=== PATIENT | male | born 1960 | race Caucasian/White ===

== ENCOUNTER 2017-07-20 18:49 | Emergency (ER) | payer SELFPAY ==
[~2017-07-20] VITALS: Ht 167.6 cm; Wt 69.0 kg
[2017-07-20] MEDS ORDERED: IPRATROPIUM BROMIDE (0.02%) 0.5MG/2.5ML NEB HHN STA (19:01)
[2017-07-20] MEDS ORDERED: ALBUTEROL (0.083%) 2.5MG/3ML NEB HHN STA (19:01)
[2017-07-20 20:03] LABS: BASOPHILS % 2.8 % (0.0-2.0); EOSINOPHILS % 1.7 % (0.0-5.0); HEMATOCRIT. 46.5 % (42.0-52.0); LYMPHOCYTES % 35.1 % (20.0-50.0); MEAN CORPUSCULAR HEMOGLOBIN 30.5 pg (28.0-32.0); MEAN CORPUSCULAR VOLUME 88.8 fL (80.0-94.0); MEAN PLATELET VOLUME 10.1 fl (7.4-10.4); NEUTROPHILS % 51.4 % (40.0-76.0); PLATELET 151 x1000/uL (130-400); RED BLOOD CELL COUNT 5.23 mill/uL (4.7-6.1)
[2017-07-20 20:05] LABS: CHLORIDE 112 mEq/L (98-107)
[2017-07-20 20:07] LABS: INR 1.2; PARTIAL THROMBOPLASTIN TIME 27.8 sec (23.4-31.0); PROTHROMBIN TIME 12.9 sec (9.4-11.6)
[2017-07-20] MEDS ORDERED: SODIUM CHLORIDE 0.9% 1,000 ML IV ONE (23:04)
[2017-07-20 23:28] LABS: BG BASE EXCESS -4.2 mmol/L (-2.0-2.0); BG CARBOXYHEMOGLOBIN 1.3 % (0.5-1.5); BG DEOXYHEMOGLOBIN 2.8 % (0.0-5.0); BG FRACTION INSPIRED OXYGEN 21; BG METHEMOGLOBIN 0.1 % (0.0-1.5); BG OXYHEMOGLOBIN 95.8 % (94.0-97.0); BG PCO2 26.3 mmHg (35.0-45.0); BG PH 7.452 (7.350-7.450); BG PO2 90.9 mmHg (75.0-100.0); BG SAMPLE SITE RIGHT BRACHIAL; BG TOTAL HEMOGLOBIN 15.3 g/dL (12.0-18.0); BG VENT MODE ROOM AIR
[2017-07-21] MEDS ORDERED: HYDROCODONE/ACETAMINOPHEN 5/325MG TABLET PO PRN (05:15)
[2017-07-21] MEDS ORDERED: DOCUSATE SODIUM 100MG CAPSULE PO PRN (05:15)
[2017-07-21] MEDS ORDERED: GUAIFENESIN 200MG/10ML SUGAR FREE UDC PO PRN (05:15)
[2017-07-21] MEDS ORDERED: HYDROMORPHONE HCL/PF 2MG/ML CPJ IV PRN (05:15)
[2017-07-21] MEDS ORDERED: CLONIDINE 0.1MG TABLET PO PRN (05:15)
[2017-07-21] MEDS ORDERED: ACETAMINOPHEN 325MG TABLET PO PRN (05:15)
[2017-07-21] MEDS ORDERED: ONDANSETRON HCL 4MG/2ML VIAL IV PRN (05:15)
[2017-07-21] MEDS ORDERED: NA PHOS,M-B/NA PHOS,DI-BA ENEMA 118ML PR PRN (05:15)
[2017-07-21] MEDS ORDERED: MAGNESIUM/ALUMINUM HYDROXIDE/SIMETHICONE 30ML UDC PO PRN (05:15)
[2017-07-21] MEDS ORDERED: DIPHENHYDRAMINE 50MG/ML VIAL IV PRN (05:15)
[2017-07-21] MEDS ORDERED: LORAZEPAM 2MG/ML CPJ IV PRN (05:15)
[2017-07-21] MEDS ORDERED: IPRATROPIUM/ALBUTEROL 0.5-3(2.5)MG/3ML NEB INH PRN (05:15)
[2017-07-21 06:37] LABS: CHLORIDE 115 mEq/L (98-107)
[2017-07-21] MEDS ORDERED: LEVOFLOXACIN 500MG PREMIX 100 ML IV SCH (08:00)
[2017-07-21] MEDS ORDERED: METHYLPREDNISOLONE SOD SUCC 125 MG/2 ML VIAL IV SCH (08:00)
[2017-07-21] MEDS ORDERED: ENOXAPARIN 40MG/0.4ML SYR SUBCUT SCH (09:00)
[2017-07-21] MEDS ORDERED: ASPIRIN 81MG EC TABLET PO SCH (09:00)
[2017-07-21 09:16] LABS: *AMPHETAMINES SCREEN URINE PRESUMTIVE POSITIVE (NEGATIVE); *BARBITURATES SCREEN URINE NEGATIVE (NEGATIVE)
[2017-07-21 09:17] LABS: *BENZODIAZEPINES SCREEN URINE NEGATIVE (NEGATIVE); *COCAINE SCREEN URINE NEGATIVE (NEGATIVE); CANNABINOID URINE SCREEN NEGATIVE (NEGATIVE); METHADONE URINE SCREEN NEGATIVE (NEGATIVE); OPIATES URINE SCREEN NEGATIVE (NEGATIVE); PHENCYCLIDINE URINE SCREEN NEGATIVE (NEGATIVE)
[2017-07-21 11:32] VITALS: BP 121/85
== END 2017-07-21 12:35 | disposition left against medical advice (07) ==
LOC: ER 20:34 → ENRESERV 07-21 14:46 → CANRESERV 07-21 14:46 → CANBEDREQ 07-21 16:26
DX: J18.9 Pneumonia, unspecified organism (principal); J98.01 Acute bronchospasm; F15.10 Other stimulant abuse, uncomplicated; F17.210 Nicotine dependence, cigarettes, uncomplicated; R94.31 Abnormal electrocardiogram [ECG] [EKG]
CPT/HCPCS: 36415; 36600; 71045; 80048; 80053; 80305; 82375; 82805; 83690; 83880; 84443; 84484; 85025; 85610; 85730; 93005; 94640; 96365; 96366; 99285; J1956; J7030; J7611

== ENCOUNTER 2017-07-29 15:19 | Inpatient (IN) | payer SELFPAY ==
[~2017-07-29] VITALS: Ht 167.6 cm; Wt 71.7 kg
[2017-07-29] MEDS ORDERED: METHYLPREDNISOLONE SOD SUCC 125 MG/2 ML VIAL IV STA (15:44)
[2017-07-29] MEDS ORDERED: IPRATROPIUM BROMIDE (0.02%) 0.5MG/2.5ML NEB HHN STA (15:44)
[2017-07-29] MEDS ORDERED: ALBUTEROL (0.083%) 2.5MG/3ML NEB HHN STA (15:44)
[2017-07-29 16:25] LABS: BASOPHILS % 0.8 % (0.0-2.0); EOSINOPHILS % 1.2 % (0.0-5.0); HEMATOCRIT. 44.8 % (42.0-52.0); HEMOGLOBIN. 14.9 g/dL (14.0-18.0); MEAN CORPUSCULAR HEMOGLOBIN 29.8 pg (28.0-32.0); MEAN CORPUSCULAR VOLUME 89.8 fL (80.0-94.0); MEAN PLATELET VOLUME 10.6 fl (7.4-10.4); MONOCYTES % 5.9 % (2.0-8.0); NEUTROPHILS % 77.1 % (40.0-76.0); PLATELET 117 x1000/uL (130-400); RED BLOOD CELL COUNT 4.98 mill/uL (4.7-6.1); RED CELL DISTRIBUTION WIDTH 16.4 % (11.6-14.6)
[2017-07-29 16:28] LABS: CHLORIDE 112 mEq/L (98-107)
[2017-07-29 17:46] LABS: INR 1.3; PROTHROMBIN TIME 13.8 sec (9.4-11.6)
[2017-07-29 18:09] LABS: COLOR URINE DARK YELLOW (YELLOW); KETONES URINE NEGATIVE (NEGATIVE); LEUKOCYTE ESTERASE URINE NEGATIVE (NEGATIVE); NITRITE URINE NEGATIVE (NEGATIVE); OCCULT BLOOD URINE NEGATIVE (NEGATIVE); PROTEIN URINE 2+ (NEGATIVE); SPECIFIC GRAVITY URINE 1.026 (1.005-1.030)
[2017-07-29] MEDS ORDERED: ENALAPRIL 2.5MG/2ML VIAL 2ML IV ONE (18:15)
[2017-07-29] MEDS ORDERED: FUROSEMIDE 40MG/4ML VIAL IVP ONE (18:15)
[2017-07-29 18:17] LABS: CLARITY URINE CLEAR (CLEAR)
[2017-07-29] MEDS ORDERED: MAGNESIUM/ALUMINUM HYDROXIDE/SIMETHICONE 30ML UDC PO PRN (18:45)
[2017-07-29] MEDS ORDERED: HYDROCODONE/ACETAMINOPHEN 5/325MG TABLET PO PRN (18:45)
[2017-07-29] MEDS ORDERED: CLONIDINE 0.1MG TABLET PO PRN (18:45)
[2017-07-29] MEDS ORDERED: DOCUSATE SODIUM 100MG CAPSULE PO PRN (18:45)
[2017-07-29 19:26] LABS: HEPATITIS B SURFACE ANTIGEN NEGATIVE
[2017-07-29 19:54] LABS: HEPATITIS B CORE AB IGM NEGATIVE
[2017-07-29 19:56] LABS: HEPATITIS A AB IGM NEGATIVE (NEGATIVE)
[2017-07-29] MEDS ORDERED: ONDANSETRON HCL 4MG/2ML VIAL IV PRN (20:00)
[2017-07-30] VITALS (9 sets, daily range): BP systolic 97–129; BP diastolic 63–100
[2017-07-30 00:55] LABS: CHLORIDE 109 mEq/L (98-107)
[2017-07-30 01:04] LABS: CREATINE KINASE 251 IU/L (39-308)
[2017-07-30 01:06] LABS: CREATINE KINASE MB FRACTION 10.2 ng/mL (0.5-3.6)
[2017-07-30 07:16] LABS: BASOPHILS % 0.1 % (0.0-2.0); HEMATOCRIT. 41.9 % (42.0-52.0); MEAN CORPUSCULAR HEMOGLOBIN 29.8 pg (28.0-32.0); MEAN CORPUSCULAR VOLUME 89.2 fL (80.0-94.0); MEAN PLATELET VOLUME 10.7 fl (7.4-10.4); NEUTROPHILS % 87.9 % (40.0-76.0); PLATELET 102 x1000/uL (130-400)
[2017-07-30] MEDS ORDERED: DEXTROSE 50% WATER 50ML SYRINGE IV PRN (07:30)
[2017-07-30 07:51] LABS: CREATINE KINASE MB FRACTION 10.5 ng/mL (0.5-3.6)
[2017-07-30] MEDS: INSULIN LISPRO 100 UNITS/ML SUBCUT SCH ×4 (08:00→20:28)
[2017-07-30] MEDS: FUROSEMIDE 40MG/4ML VIAL IV SCH ×2 (08:15→17:10)
[2017-07-30] MEDS: LISINOPRIL 5MG TABLET PO SCH (08:17)
[2017-07-30] MEDS: BLOOD SUGAR DIAGNOSTIC STRIP TEST SCH ×4 (08:18→20:28)
[2017-07-30] MEDS ORDERED: ASPIRIN 325MG EC TABLET PO SCH (10:30)
[2017-07-30] MEDS: AMLODIPINE 5MG TABLET PO SCH (11:54)
[2017-07-30] MEDS: BUDESONIDE 0.5MG/2ML NEB HHN SCH ×2 (13:19→20:16)
[2017-07-30] MEDS: IPRATROPIUM/ALBUTEROL 0.5-3(2.5)MG/3ML NEB INH PRN ×2 (13:20→20:16)
[2017-07-30 17:51] LABS: CLARITY URINE CLEAR (CLEAR); COLOR URINE YELLOW (YELLOW); KETONES URINE NEGATIVE (NEGATIVE); LEUKOCYTE ESTERASE URINE NEGATIVE (NEGATIVE); NITRITE URINE NEGATIVE (NEGATIVE); OCCULT BLOOD URINE NEGATIVE (NEGATIVE); PROTEIN URINE NEGATIVE (NEGATIVE); SPECIFIC GRAVITY URINE 1.012 (1.005-1.030)
[2017-07-30 18:21] LABS: *AMPHETAMINES SCREEN URINE PRESUMTIVE POSITIVE (NEGATIVE)
[2017-07-30 18:22] LABS: *BARBITURATES SCREEN URINE NEGATIVE (NEGATIVE); *BENZODIAZEPINES SCREEN URINE NEGATIVE (NEGATIVE); *COCAINE SCREEN URINE NEGATIVE (NEGATIVE); METHADONE URINE SCREEN NEGATIVE (NEGATIVE); OPIATES URINE SCREEN NEGATIVE (NEGATIVE); PHENCYCLIDINE URINE SCREEN NEGATIVE (NEGATIVE)
[2017-07-30 18:23] LABS: CANNABINOID URINE SCREEN NEGATIVE (NEGATIVE)
[2017-07-30] MEDS: ACETAMINOPHEN 325MG TABLET PO PRN (21:34)
[2017-07-31] VITALS (8 sets, daily range): BP systolic 86–122; BP diastolic 50–81
[2017-07-31 07:00] LABS: BASOPHILS % 0.7 % (0.0-2.0); EOSINOPHILS % 0.5 % (0.0-5.0); HEMATOCRIT. 45.2 % (42.0-52.0); HEMOGLOBIN. 15.1 g/dL (14.0-18.0); LYMPHOCYTES % 21.1 % (20.0-50.0); MEAN CORPUSCULAR HEMOGLOBIN 29.8 pg (28.0-32.0); MEAN CORPUSCULAR VOLUME 89.2 fL (80.0-94.0); MEAN PLATELET VOLUME 10.9 fl (7.4-10.4); MONOCYTES % 7.9 % (2.0-8.0); NEUTROPHILS % 69.8 % (40.0-76.0); PLATELET 120 x1000/uL (130-400); RED BLOOD CELL COUNT 5.07 mill/uL (4.7-6.1); RED CELL DISTRIBUTION WIDTH 15.9 % (11.6-14.6)
[2017-07-31 07:29] LABS: CHLORIDE 104 mEq/L (98-107)
[2017-07-31] MEDS: BLOOD SUGAR DIAGNOSTIC STRIP TEST SCH ×4 (07:30→21:35)
[2017-07-31] MEDS: INSULIN LISPRO 100 UNITS/ML SUBCUT SCH ×4 (08:00→21:45)
[2017-07-31] MEDS: ASPIRIN 81MG EC TABLET PO SCH (08:45)
[2017-07-31] MEDS: FUROSEMIDE 40MG/4ML VIAL IV SCH ×2 (08:45→17:42)
[2017-07-31] MEDS: BUDESONIDE 0.5MG/2ML NEB HHN SCH ×2 (09:00→21:42)
[2017-07-31] MEDS: AMLODIPINE 5MG TABLET PO SCH (09:56)
[2017-07-31] MEDS: LISINOPRIL 5MG TABLET PO SCH (09:57)
[2017-07-31] MEDS ORDERED: CARVEDILOL 3.125 MG TABLET PO NR (12:45)
[2017-07-31] MEDS: CARVEDILOL 3.125 MG TABLET PO SCH (21:00)
[2017-08-01] VITALS (12 sets, daily range): BP systolic 83–150; BP diastolic 50–80
[2017-08-01 06:55] LABS: BASOPHILS % 1.2 % (0.0-2.0); EOSINOPHILS % 2.6 % (0.0-5.0); HEMATOCRIT. 46.7 % (42.0-52.0); HEMOGLOBIN. 15.7 g/dL (14.0-18.0); LYMPHOCYTES % 28.2 % (20.0-50.0); MEAN CORPUSCULAR VOLUME 89.6 fL (80.0-94.0); MEAN PLATELET VOLUME 10.4 fl (7.4-10.4); MONOCYTES % 8.8 % (2.0-8.0); NEUTROPHILS % 59.2 % (40.0-76.0); PLATELET 128 x1000/uL (130-400); RED BLOOD CELL COUNT 5.21 mill/uL (4.7-6.1); RED CELL DISTRIBUTION WIDTH 15.7 % (11.6-14.6)
[2017-08-01 07:25] LABS: CHLORIDE 102 mEq/L (98-107)
[2017-08-01] MEDS: BLOOD SUGAR DIAGNOSTIC STRIP TEST SCH ×4 (07:30→21:00)
[2017-08-01] MEDS: IPRATROPIUM/ALBUTEROL 0.5-3(2.5)MG/3ML NEB INH PRN (07:59)
[2017-08-01] MEDS: INSULIN LISPRO 100 UNITS/ML SUBCUT SCH ×4 (08:00→22:24)
[2017-08-01] MEDS: BUDESONIDE 0.5MG/2ML NEB HHN SCH ×2 (08:00→21:25)
[2017-08-01] MEDS: AMLODIPINE 5MG TABLET PO SCH (09:00)
[2017-08-01] MEDS: CARVEDILOL 3.125 MG TABLET PO SCH ×2 (09:00→20:43)
[2017-08-01] MEDS: LISINOPRIL 5MG TABLET PO SCH (09:00)
[2017-08-01] MEDS: ASPIRIN 81MG EC TABLET PO SCH (09:11)
[2017-08-01] MEDS: FUROSEMIDE 40MG/4ML VIAL IV SCH ×2 (09:11→18:43)
[2017-08-02] VITALS (7 sets, daily range): BP systolic 93–111; BP diastolic 50–77
[2017-08-02] MEDS: IPRATROPIUM/ALBUTEROL 0.5-3(2.5)MG/3ML NEB INH PRN ×2 (00:44→09:20)
[2017-08-02 06:55] LABS: BASOPHILS % 1.1 % (0.0-2.0); EOSINOPHILS % 2.3 % (0.0-5.0); HEMATOCRIT. 50.9 % (42.0-52.0); HEMOGLOBIN. 17.1 g/dL (14.0-18.0); LYMPHOCYTES % 26.9 % (20.0-50.0); MEAN CORPUSCULAR HEMOGLOBIN 29.8 pg (28.0-32.0); MEAN PLATELET VOLUME 10.2 fl (7.4-10.4); MONOCYTES % 8.7 % (2.0-8.0); PLATELET 135 x1000/uL (130-400); RED BLOOD CELL COUNT 5.72 mill/uL (4.7-6.1); RED CELL DISTRIBUTION WIDTH 15.9 % (11.6-14.6)
[2017-08-02 07:30] LABS: CHLORIDE 102 mEq/L (98-107)
[2017-08-02] MEDS: INSULIN LISPRO 100 UNITS/ML SUBCUT SCH (08:00)
[2017-08-02] MEDS: BLOOD SUGAR DIAGNOSTIC STRIP TEST SCH (08:24)
[2017-08-02] MEDS: ACETAMINOPHEN 325MG TABLET PO PRN (08:26)
[2017-08-02] MEDS: FUROSEMIDE 40MG/4ML VIAL IV SCH (08:31)
[2017-08-02] MEDS: ASPIRIN 81MG EC TABLET PO SCH (08:31)
[2017-08-02] MEDS: CARVEDILOL 3.125 MG TABLET PO SCH (08:32)
[2017-08-02] MEDS ORDERED: LISINOPRIL 2.5MG TABLET PO SCH (09:00)
[2017-08-02] MEDS: BUDESONIDE 0.5MG/2ML NEB HHN SCH (09:20)
[2017-08-02] MEDS ORDERED: COR3 PO (09:41)
[2017-08-02] MEDS ORDERED: METF500T4 MT (09:41)
[2017-08-02] MEDS ORDERED: LISI2.5T47 PO (09:41)
[2017-08-02] MEDS ORDERED: FURO-151 MT (09:41)
[2017-08-02] MEDS ORDERED: ASPI-1158 PO (09:41)
== END 2017-08-02 11:55 | disposition home or self-care (01) | DRG 144 ==
LOC: ER 15:19 → 5EST 18:28 → EDBEDREQSVC 18:47 → ENRESERV 22:01
PROVIDERS: ADMIT Internal Medicine; ATTEND Internal Medicine
DX: J68.0 Bronchitis and pneumonitis due to chemicals, gases, fumes and vapors (principal); J96.00 Acute respiratory failure, unspecified whether with hypoxia or hypercapnia; I50.23 Acute on chronic systolic (congestive) heart failure; E44.0 Moderate protein-calorie malnutrition; E87.8 Other disorders of electrolyte and fluid balance, not elsewhere classified; D69.6 Thrombocytopenia, unspecified; I42.9 Cardiomyopathy, unspecified; I11.0 Hypertensive heart disease with heart failure; B19.20 Unspecified viral hepatitis C without hepatic coma; E11.9 Type 2 diabetes mellitus without complications; E87.6 Hypokalemia; F17.210 Nicotine dependence, cigarettes, uncomplicated; Z96.659 Presence of unspecified artificial knee joint; Z60.2 Problems related to living alone; T43.625A Adverse effect of amphetamines, initial encounter; I25.2 Old myocardial infarction; Z79.899 Other long term (current) drug therapy; Z71.6 Tobacco abuse counseling; Y92.89 Other specified places as the place of occurrence of the external cause; Z68.25 Body mass index [BMI] 25.0-25.9, adult
CPT/HCPCS: 36415; 71045; 80048; 80053; 80061; 80305; 81003; 82550; 82553; 82962; 83036; 83735; 83880; 84443; 84484; 85025; 85610; 86705; 86709; 86803; 87340; 93005; 93306; 94640; 96374; 96375; 99285; J1815; J1940; J2930; J3490; J7611; J7620; J7626

== ENCOUNTER 2018-11-17 12:02 | Inpatient (IN) | payer MEDICAID ==
[~2018-11-17] VITALS: Ht 170.2 cm; Wt 72.6 kg
[~2018-11-17 12:02] MED LIST: ASPI-1158 PO; COR3 PO; FURO-151 MT; LISI2.5T47 PO; METF-414 MT
[2018-11-17] MEDS ORDERED: FUROSEMIDE 40MG/4ML VIAL IV ONE (13:30)
[2018-11-17 13:43] LABS: EOSINOPHILS % 2.1 % (0.0-5.0); HEMATOCRIT. 42.5 % (42.0-52.0); HEMOGLOBIN. 14.4 g/dL (14.0-18.0); LYMPHOCYTES % 25.1 % (20.0-50.0); MEAN CORPUSCULAR HEMOGLOBIN 30.1 pg (28.0-32.0); MEAN CORPUSCULAR VOLUME 88.6 fL (80.0-94.0); MEAN PLATELET VOLUME 9.6 fl (7.4-10.4); MONOCYTES % 9.2 % (2.0-8.0); NEUTROPHILS % 62.6 % (40.0-76.0); PLATELET 93 x1000/uL (130-400); RED CELL DISTRIBUTION WIDTH 15.2 % (11.6-14.6)
[2018-11-17 13:55] LABS: CHLORIDE 114 mEq/L (98-107)
[2018-11-17] MEDS ORDERED: LORAZEPAM 2MG/ML CPJ IV PRN (17:15)
[2018-11-17] MEDS ORDERED: ONDANSETRON HCL 4MG/2ML INJ IV PRN (17:15)
[2018-11-17] MEDS ORDERED: HYDROCODONE/ACETAMINOPHEN 5/325MG TABLET PO PRN (17:15)
[2018-11-17] MEDS ORDERED: THIAMINE HCL 100MG TABLET PO SCH (17:15)
[2018-11-17] MEDS ORDERED: ENOXAPARIN 40MG/0.4ML SYR SUBCUT SCH (17:15)
[2018-11-17] MEDS ORDERED: MORPHINE SULFATE 2 MG/ML CPJ (NOT FOR IM USE) IV PRN (17:38)
[2018-11-17 21:16] VITALS: BP 105/80
[2018-11-17 21:44] VITALS: BP 105/80
[2018-11-17 22:19] LABS: CREATINE KINASE MB FRACTION 3.9 ng/mL (0.5-3.6)
[2018-11-18] VITALS: BP 130/83
[2018-11-18 04:00] VITALS: BP 113/87
[2018-11-18] MEDS ORDERED: ASPIRIN 81MG EC TABLET PO ONE (06:28)
[2018-11-18] MEDS ORDERED: ASPIRIN 81MG EC TABLET PO SCH (06:30)
[2018-11-18 07:35] LABS: CREATINE KINASE MB FRACTION 3.7 ng/mL (0.5-3.6)
[2018-11-18 08:00] VITALS: BP_SYST 113; BP_DIAS 76; BP_DIAS 86
[2018-11-18] MEDS: CARVEDILOL 3.125 MG TABLET PO SCH ×2 (08:42→08:52)
[2018-11-18] MEDS ORDERED: FUROSEMIDE 40MG/4ML VIAL IV SCH ×2 (09:00)
[2018-11-18] MEDS ORDERED: LOSARTAN POTASSIUM 25 MG TABLET PO SCH (09:00)
== END 2018-11-18 11:00 | disposition left against medical advice (07) | DRG 194 ==
LOC: EDBEDREQ 13:42 → ER 14:12 → 7WST 17:00 → EDBEDREQTM 17:04 → EDBEDREQ 17:04 → ENRESERV 19:35 → 7WST 11-18 00:05
PROVIDERS: ADMIT Internal Medicine Nephrology; ATTEND Internal Medicine Nephrology
DX: I50.21 Acute systolic (congestive) heart failure (principal); I42.9 Cardiomyopathy, unspecified; E44.1 Mild protein-calorie malnutrition; F17.200 Nicotine dependence, unspecified, uncomplicated; J44.9 Chronic obstructive pulmonary disease, unspecified; Z53.21 Procedure and treatment not carried out due to patient leaving prior to being seen by health care provider; Z96.659 Presence of unspecified artificial knee joint; Z79.899 Other long term (current) drug therapy; Z91.14 Patient's other noncompliance with medication regimen; Z79.82 Long term (current) use of aspirin; Z79.84 Long term (current) use of oral hypoglycemic drugs; B19.20 Unspecified viral hepatitis C without hepatic coma
CPT/HCPCS: 36415; 71045; 80061; 82550; 82553; 83880; 84443; 84484; 93005; 99285; J1940

== ENCOUNTER 2019-04-09 07:28 | Inpatient (IN) | payer MEDICAID ==
[~2019-04-09] VITALS: Ht 170.2 cm; Wt 83.0 kg
[2019-04-09] MEDS ORDERED: ALBUTEROL (0.083%) 2.5MG/3ML NEB HHN STA ×2 (08:06→13:22)
[2019-04-09] MEDS ORDERED: IPRATROPIUM BROMIDE (0.02%) 0.5MG/2.5ML NEB HHN STA (08:06)
[2019-04-09] MEDS ORDERED: METHYLPREDNISOLONE SOD SUCC 125 MG/2 ML VIAL IV STA (08:06)
[2019-04-09] MEDS ORDERED: ALBUTEROL (0.083%) 2.5MG/3ML NEB ONE ×2 (08:14→13:42)
[2019-04-09] MEDS ORDERED: ALBUTEROL (0.5%) 2.5MG/0.5ML NEB HHN ONE (08:14)
[2019-04-09] MEDS ORDERED: IPRATROPIUM BROMIDE (0.02%) 0.5MG/2.5ML NEB ONE (08:15)
[2019-04-09 08:29] LABS: EOSINOPHILS % 0.4 % (0.0-5.0); HEMATOCRIT. 48.4 % (42.0-52.0); HEMOGLOBIN. 16.4 g/dL (14.0-18.0); LYMPHOCYTES % 29.5 % (20.0-50.0); MEAN CORPUSCULAR VOLUME 88.3 fL (80.0-94.0); MEAN PLATELET VOLUME 10.4 fl (7.4-10.4); NEUTROPHILS % 59.1 % (40.0-76.0); PLATELET 123 x1000/uL (130-400); RED BLOOD CELL COUNT 5.48 mill/uL (4.7-6.1); RED CELL DISTRIBUTION WIDTH 16.7 % (11.6-14.6)
[2019-04-09 08:34] LABS: CHLORIDE 95 mEq/L (98-107)
[2019-04-09] MEDS ORDERED: ACETAMINOPHEN 325MG TABLET PO PRN (10:15)
[2019-04-09] MEDS ORDERED: ONDANSETRON HCL 4MG/2ML INJ IV PRN (10:15)
[2019-04-09] MEDS ORDERED: IPRATROPIUM/ALBUTEROL 0.5-3(2.5)MG/3ML NEB HHN PRN (10:15)
[2019-04-09] MEDS ORDERED: GUAIFENESIN 600MG ER TABLET PO NR (12:15)
[2019-04-09 13:21] LABS: CLARITY URINE CLEAR (CLEAR); COLOR URINE DARK YELLOW (YELLOW); KETONES URINE NEGATIVE (NEGATIVE); LEUKOCYTE ESTERASE URINE NEGATIVE (NEGATIVE); NITRITE URINE NEGATIVE (NEGATIVE); OCCULT BLOOD URINE NEGATIVE (NEGATIVE); PROTEIN URINE TRACE (NEGATIVE); SPECIFIC GRAVITY URINE 1.015 (1.005-1.030)
[2019-04-09] MEDS ORDERED: MAGNESIUM 2 G PREMIX 50 ML IV STA (13:23)
[2019-04-09 13:40] LABS: *AMPHETAMINES SCREEN URINE PRESUMTIVE POSITIVE (NEGATIVE); *BARBITURATES SCREEN URINE NEGATIVE (NEGATIVE)
[2019-04-09 13:41] LABS: *BENZODIAZEPINES SCREEN URINE NEGATIVE (NEGATIVE); *COCAINE SCREEN URINE NEGATIVE (NEGATIVE); PHENCYCLIDINE URINE SCREEN NEGATIVE (NEGATIVE)
[2019-04-09 13:46] LABS: CANNABINOID URINE SCREEN NEGATIVE (NEGATIVE); METHADONE URINE SCREEN NEGATIVE (NEGATIVE)
[2019-04-09 13:49] LABS: OPIATES URINE SCREEN NEGATIVE (NEGATIVE)
[2019-04-09 15:34] VITALS: BP 129/92
[2019-04-09] MEDS: ENOXAPARIN 40MG/0.4ML SYR SUBCUT SCH (16:00)
[2019-04-09] MEDS ORDERED: FUROSEMIDE 40MG/4ML VIAL IVP SCH (17:00)
[2019-04-09] MEDS: FUROSEMIDE 40MG/4ML VIAL IVP SCH (17:10)
[2019-04-09] MEDS ORDERED: INFLUENZA VIRUS VACCINE(AFLURIA) 0.5ML SYR IM ONE (18:00)
[2019-04-09] MEDS ORDERED: PNEUMOCOCCAL 23-VAL P-SAC VAC 0.5 ML IM ONE (18:00)
[2019-04-09 20:00] VITALS: BP 126/87
[2019-04-09] MEDS ORDERED: GUAIFENESIN 600MG ER TABLET PO SCH (21:00)
[2019-04-09] MEDS: IPRATROPIUM/ALBUTEROL 0.5-3(2.5)MG/3ML NEB HHN SCH (21:01)
[2019-04-09] MEDS: BUDESONIDE 0.5MG/2ML NEB HHN SCH (21:01)
[2019-04-09] MEDS: GUAIFENESIN 600MG ER TABLET PO SCH (21:13)
[2019-04-10] VITALS: BP 114/83
[2019-04-10] MEDS: IPRATROPIUM/ALBUTEROL 0.5-3(2.5)MG/3ML NEB HHN SCH ×4 (01:00→22:25)
[2019-04-10 04:00] VITALS: BP 102/65
[2019-04-10 07:20] LABS: BASOPHILS % 0.3 % (0.0-2.0); HEMOGLOBIN. 14.7 g/dL (14.0-18.0); MEAN CORPUSCULAR HEMOGLOBIN 29.8 pg (28.0-32.0); MEAN PLATELET VOLUME 10.6 fl (7.4-10.4); MONOCYTES % 5.5 % (2.0-8.0); NEUTROPHILS % 80.2 % (40.0-76.0); PLATELET 101 x1000/uL (130-400); RED BLOOD CELL COUNT 4.95 mill/uL (4.7-6.1); RED CELL DISTRIBUTION WIDTH 16.5 % (11.6-14.6)
[2019-04-10 07:51] LABS: CHLORIDE 97 mEq/L (98-107)
[2019-04-10 08:00] VITALS: BP 109/79
[2019-04-10] MEDS: LISINOPRIL 2.5MG TABLET PO SCH (08:19)
[2019-04-10] MEDS: LOSARTAN POTASSIUM 50 MG TABLET PO SCH (08:19)
[2019-04-10] MEDS: ASPIRIN 81MG EC TABLET PO SCH (08:25)
[2019-04-10] MEDS: FUROSEMIDE 40MG/4ML VIAL IVP SCH ×2 (08:25→16:37)
[2019-04-10] MEDS: GUAIFENESIN 600MG ER TABLET PO SCH ×2 (08:25→20:37)
[2019-04-10] MEDS: ENOXAPARIN 40MG/0.4ML SYR SUBCUT SCH (08:25)
[2019-04-10] MEDS: BUDESONIDE 0.5MG/2ML NEB HHN SCH ×2 (09:12→22:24)
[2019-04-10] MEDS: HYDROCODONE/ACETAMINOPHEN 5/325MG TABLET PO PRN ×2 (11:44→20:44)
[2019-04-10 11:45] VITALS: BP 117/89
[2019-04-10 14:10] LABS: CANNABINOID URINE SCREEN NEGATIVE (NEGATIVE); PHENCYCLIDINE URINE SCREEN NEGATIVE (NEGATIVE)
[2019-04-10 14:11] LABS: *AMPHETAMINES SCREEN URINE PRESUMTIVE POSITIVE (NEGATIVE); *BARBITURATES SCREEN URINE NEGATIVE (NEGATIVE); *BENZODIAZEPINES SCREEN URINE NEGATIVE (NEGATIVE); *COCAINE SCREEN URINE NEGATIVE (NEGATIVE); METHADONE URINE SCREEN NEGATIVE (NEGATIVE); OPIATES URINE SCREEN NEGATIVE (NEGATIVE)
[2019-04-10 16:00] VITALS: BP 116/59
[2019-04-10] MEDS: NICOTINE 14MG PATCH TD SCH (16:36)
[2019-04-10 20:00] VITALS: BP 114/83
[2019-04-11] VITALS (7 sets, daily range): BP systolic 104–133; BP diastolic 65–83
[2019-04-11] MEDS: IPRATROPIUM/ALBUTEROL 0.5-3(2.5)MG/3ML NEB HHN SCH ×4 (04:26→20:47)
[2019-04-11 06:17] LABS: CHLORIDE 97 mEq/L (98-107)
[2019-04-11 06:18] LABS: HEMOGLOBIN. 14.7 g/dL (14.0-18.0); MEAN CORPUSCULAR HEMOGLOBIN 29.7 pg (28.0-32.0); MEAN CORPUSCULAR VOLUME 87.1 fL (80.0-94.0); MEAN PLATELET VOLUME 10.6 fl (7.4-10.4); PLATELET 118 x1000/uL (130-400); RED BLOOD CELL COUNT 4.94 mill/uL (4.7-6.1); RED CELL DISTRIBUTION WIDTH 16.9 % (11.6-14.6)
[2019-04-11 07:07] LABS: HIV SCREEN 4G Non Reactive (Non Reactive)
[2019-04-11] MEDS: LISINOPRIL 2.5MG TABLET PO SCH (08:35)
[2019-04-11] MEDS: LOSARTAN POTASSIUM 50 MG TABLET PO SCH (08:35)
[2019-04-11] MEDS: FUROSEMIDE 40MG/4ML VIAL IVP SCH ×2 (08:36→17:29)
[2019-04-11] MEDS: ASPIRIN 81MG EC TABLET PO SCH (08:36)
[2019-04-11] MEDS: GUAIFENESIN 600MG ER TABLET PO SCH ×2 (08:36→21:43)
[2019-04-11] MEDS: NICOTINE 14MG PATCH TD SCH (08:36)
[2019-04-11] MEDS: ENOXAPARIN 40MG/0.4ML SYR SUBCUT SCH (08:37)
[2019-04-11] MEDS: BUDESONIDE 0.5MG/2ML NEB HHN SCH ×2 (08:46→20:47)
[2019-04-11] MEDS: HYDROCODONE/ACETAMINOPHEN 5/325MG TABLET PO PRN ×3 (12:18→23:30)
[2019-04-11] MEDS: BENZONATATE 100MG CAPSULE PO PRN (17:30)
[2019-04-12] VITALS: BP 106/70
[2019-04-12] MEDS: IPRATROPIUM/ALBUTEROL 0.5-3(2.5)MG/3ML NEB HHN SCH ×4 (02:44→21:23)
[2019-04-12 04:00] VITALS: BP 110/87
[2019-04-12 06:05] LABS: BASOPHILS % 0.1 % (0.0-2.0); EOSINOPHILS % 0.2 % (0.0-5.0); HEMATOCRIT. 44.6 % (42.0-52.0); HEMOGLOBIN. 14.9 g/dL (14.0-18.0); LYMPHOCYTES % 16.2 % (20.0-50.0); MEAN CORPUSCULAR HEMOGLOBIN 29.6 pg (28.0-32.0); MEAN CORPUSCULAR VOLUME 88.5 fL (80.0-94.0); MEAN PLATELET VOLUME 11.2 fl (7.4-10.4); MONOCYTES % 8.9 % (2.0-8.0); NEUTROPHILS % 74.6 % (40.0-76.0); PLATELET 133 x1000/uL (130-400); RED BLOOD CELL COUNT 5.04 mill/uL (4.7-6.1); RED CELL DISTRIBUTION WIDTH 16.4 % (11.6-14.6)
[2019-04-12 06:51] LABS: CHLORIDE 93 mEq/L (98-107)
[2019-04-12] MEDS: BENZONATATE 100MG CAPSULE PO PRN ×2 (06:51→16:45)
[2019-04-12 08:00] VITALS: BP 118/91
[2019-04-12] MEDS: ASPIRIN 81MG EC TABLET PO SCH (08:31)
[2019-04-12] MEDS: FUROSEMIDE 40MG/4ML VIAL IVP SCH ×2 (08:31→16:45)
[2019-04-12] MEDS: LISINOPRIL 2.5MG TABLET PO SCH (08:31)
[2019-04-12] MEDS: GUAIFENESIN 600MG ER TABLET PO SCH ×2 (08:31→21:59)
[2019-04-12] MEDS: LOSARTAN POTASSIUM 50 MG TABLET PO SCH (08:32)
[2019-04-12] MEDS: NICOTINE 14MG PATCH TD SCH (08:32)
[2019-04-12] MEDS: ENOXAPARIN 40MG/0.4ML SYR SUBCUT SCH (08:33)
[2019-04-12] MEDS: BUDESONIDE 0.5MG/2ML NEB HHN SCH ×2 (10:10→21:24)
[2019-04-12] MEDS ORDERED: PROMETHAZINE/DEXTROMETHORPHAN 6.25-15MG/5ML BOTTLE 120ML PO PRN (10:30)
[2019-04-12] MEDS: CEFTRIAXONE 1 G PREMIX 50 ML IV SCH (11:58)
[2019-04-12 12:00] VITALS: BP 101/72
[2019-04-12] MEDS: AZITHROMYCIN 500 MG in DEXT 5% WATER 250 ML IV SCH (12:49)
[2019-04-12] MEDS: METHYLPREDNISOLONE SOD SUCC 125 MG/2 ML VIAL IV SCH ×2 (13:01→21:59)
[2019-04-12 13:45] LABS: PLATELET ESTIMATE SLIGHTLY DECREASED
[2019-04-12] MEDS: HYDROCODONE/ACETAMINOPHEN 5/325MG TABLET PO PRN ×2 (15:25→21:59)
[2019-04-12 16:00] VITALS: BP 95/67
[2019-04-12] MEDS ORDERED: TUBERCULIN,PURIF.PROT.DERIV. 5 TU/0.1 ML SYR ID ONE (16:30)
[2019-04-12 20:00] VITALS: BP 102/65
[2019-04-12] MEDS: CARVEDILOL 3.125 MG TABLET PO SCH (21:00)
[2019-04-13] VITALS: BP 91/61
[2019-04-13] MEDS: IPRATROPIUM/ALBUTEROL 0.5-3(2.5)MG/3ML NEB HHN SCH ×3 (02:08→13:19)
[2019-04-13 04:00] VITALS: BP 99/71
[2019-04-13] MEDS: METHYLPREDNISOLONE SOD SUCC 125 MG/2 ML VIAL IV SCH ×2 (05:09→13:46)
[2019-04-13 08:00] VITALS: BP 102/74
[2019-04-13] MEDS: BUDESONIDE 0.5MG/2ML NEB HHN SCH (08:05)
[2019-04-13] MEDS: CARVEDILOL 3.125 MG TABLET PO SCH (08:18)
[2019-04-13] MEDS: LOSARTAN POTASSIUM 50 MG TABLET PO SCH (08:19)
[2019-04-13] MEDS: LISINOPRIL 2.5MG TABLET PO SCH (08:19)
[2019-04-13] MEDS: FUROSEMIDE 40MG/4ML VIAL IVP SCH (08:51)
[2019-04-13] MEDS: GUAIFENESIN 600MG ER TABLET PO SCH (08:52)
[2019-04-13] MEDS: ASPIRIN 81MG EC TABLET PO SCH (08:52)
[2019-04-13] MEDS: ENOXAPARIN 40MG/0.4ML SYR SUBCUT SCH (08:52)
[2019-04-13] MEDS: BENZONATATE 100MG CAPSULE PO PRN (08:52)
[2019-04-13] MEDS: NICOTINE 14MG PATCH TD SCH (08:54)
[2019-04-13] MEDS: CEFTRIAXONE 1 G PREMIX 50 ML IV SCH (10:57)
[2019-04-13] MEDS: AZITHROMYCIN 500 MG in DEXT 5% WATER 250 ML IV SCH (11:37)
[2019-04-13 12:00] VITALS: BP 103/77
[2019-04-13 14:02] VITALS: BP 103/77
== END 2019-04-13 14:25 | disposition home or self-care (01) | DRG 812 ==
LOC: ER 07:28 → 5WST 09:40 → EDBEDREQSVC 14:31 → ENRESERV 14:33
PROVIDERS: ADMIT Internal Medicine Nephrology; ATTEND Internal Medicine Nephrology
DX: T43.621A Poisoning by amphetamines, accidental (unintentional), initial encounter (principal); J96.00 Acute respiratory failure, unspecified whether with hypoxia or hypercapnia; I50.43 Acute on chronic combined systolic (congestive) and diastolic (congestive) heart failure; I47.2 Ventricular tachycardia; E87.8 Other disorders of electrolyte and fluid balance, not elsewhere classified; J68.0 Bronchitis and pneumonitis due to chemicals, gases, fumes and vapors; I27.20 Pulmonary hypertension, unspecified; Y92.89 Other specified places as the place of occurrence of the external cause; I11.0 Hypertensive heart disease with heart failure; E87.1 Hypo-osmolality and hyponatremia; I42.8 Other cardiomyopathies; K80.20 Calculus of gallbladder without cholecystitis without obstruction; B19.20 Unspecified viral hepatitis C without hepatic coma; F15.10 Other stimulant abuse, uncomplicated; F17.210 Nicotine dependence, cigarettes, uncomplicated; R74.0 Nonspecific elevation of levels of transaminase and lactic acid dehydrogenase [LDH]; Z96.651 Presence of right artificial knee joint; E11.9 Type 2 diabetes mellitus without complications; I08.1 Rheumatic disorders of both mitral and tricuspid valves; Z91.14 Patient's other noncompliance with medication regimen; Z79.82 Long term (current) use of aspirin; Z79.899 Other long term (current) drug therapy; Z82.49 Family history of ischemic heart disease and other diseases of the circulatory system; Z71.6 Tobacco abuse counseling; Z71.51 Drug abuse counseling and surveillance of drug abuser
CPT/HCPCS: 36415; 71045; 76700; 80048; 80053; 80076; 80305; 81003; 82570; 83735; 83880; 84300; 84484; 85025; 87389; 87804; 90585; 90686; 90732; 93005; 93306; 94640; 96365; 96372; 96375; 97162; 99285; J0456; J0696; J1650; J1940; J2930; J3475; J7060; J7611; J7620; J7626